=== PATIENT | male | born 1985 | race Caucasian/White ===

== ENCOUNTER 2016-06-06 20:22 | Emergency (ER) | payer OTHER ==
[2016-06-06 21:02] LABS: HEMOGLOBIN 14.1 gm/dl (14.0-17.5); RED BLOOD COUNT 4.56 M/UL (4.20-5.50); WHITE BLOOD COUNT 8.6 K/UL (4.5-11.0)
[2016-06-06 21:19] LABS: BUN/CREATININE RATIO 9 (0-10)
[2016-06-07 01:24] LABS: BUN/CREATININE RATIO 12 (0-10)
== END 2016-06-07 03:12 | disposition home or self-care (01) ==
LOC: ER1 20:22
PROVIDERS: Student in an Organized Health Care Education/Training Program
DX: R56.9 Unspecified convulsions (principal)
CPT/HCPCS: 36415; 70450; 71010; 72125; 80048; 80053; 80307; 81001; 82550; 82962; 83735; 83874; 85025; 93005; 96361; 96374; 99291; G0480

== ENCOUNTER → 2016-06-22 | Outpatient (CLI) | payer OTHER | LOC: EMI 14:47 | DX: R56.9 Unspecified convulsions (principal); R41.0 Disorientation, unspecified | CPT/HCPCS: 70553; A9577; J7050 ==

== ENCOUNTER → 2016-06-22 | Outpatient (CLI) | payer OTHER | LOC: LAB 13:48 | DX: R56.9 Unspecified convulsions (principal); R41.0 Disorientation, unspecified | CPT/HCPCS: 36415; 82565; 84520 ==